=== PATIENT | female | born 1985 | race Caucasian/White ===

== ENCOUNTER 2018-09-28 09:33 | Emergency (ER) | payer BC, SELFPAY ==
[2018-09-28 10:17] LABS: Absolute Lymphocytes (CBC) 2.2 K/uL (0.7-4.9); Absolute Monocytes 0.4 K/uL (0.1-1.3); Basophils % 0.9 % (0-1.3); Eosinophils % 3.2 % (0-4.4); Hematocrit 39.6 % (36.0-45.0); MCH 29.4 pg (27.0-35.0); MCV 87.6 fL (80-100); MPV 8.3 fL (7.6-11.3); Monocytes % 6.4 % (3.3-12.3); RBC Red Blood Cell Count 4.51 M/uL (3.86-4.86)
[2018-09-28 10:35] LABS: Potassium 3.8 mmol/L (3.5-5.1)
[2018-09-28 10:49] LABS: Urine Blood TRACE (NEG); Urine Glucose NEGATIVE (NEG); Urine Protein NEGATIVE (NEG); Urine Specific Gravity 1.015 (1.005-1.030)
--- NOTE | 2018-09-28 11:10 | RAD REPORT ---
EXAM DESCRIPTION: US - Transvaginal Study Probe - 09/28/2018 10:51 am CLINICAL HISTORY: VAGINAL BLEEDING Pelvic pain. COMPARISON: No comparisons FINDINGS: The uterus is normal in size, shape and echotexture. Small 5 x 4 mm submucosal fibroid jennifer pected anterior wall. The uterus measures 7.8 x 5.2 x 4.1 cm. The endometrial stripe measures 12 mm, normal. Both ovaries are normal in size, shape and echotexture. The right ovary measures 3.3 x 1.8 x 1.6 cm. The left ovary measures 2.0 x 1.6 x 1.0 cm. No ovarian or parovarian lesions. No adnexal masses. Normal Doppler blood flow was demonstrated to both ovaries. No significant pelvic ascites. IMPRESSION: 5 x 4 mm submucosal fibroid anterior myometrium.
--- NOTE | 2018-09-28 11:45 | ER ---
Nurse's Notes [facility] Name: Jeana Rashid Age: 33 yrs Sex: Female : 1985 Arrival Date: 09/28/2018 Time: 09:37 Bed 7 Private MD: None, None Diagnosis: Abnormal uterine and vaginal bleeding, unspecified Presentation: 09/28 09:48 Presenting complaint: Patient states: vaginal bleeding that began as spotting on aa5 September 20 and has gotten heavier with small clots. Pt also reports intermittent lower abd cramping. Pt states "I didn't take a test but I haven't been able to get ". 09:48 Transition of care: patient was not received from another setting of care. Onset of aa5 symptoms was September 20, 2018. Risk Assessment: Do you want to hurt yourself or someone else? Patient reports no desire to harm self or others. Initial Sepsis Screen: Does the patient meet any 2 criteria? No. Patient's initial sepsis screen is negative. Does the patient have a suspected source of infection? No. Patient's initial sepsis screen is negative. Care prior to arrival: None. 09:48 Method Of Arrival: Ambulatory aa5 09:48 Acuity: JANINE 3 aa5 OPTICAL ADVISOR: 09:50 LMP 09/09/2018, (September 09-September 16) aa5 11:34 0, 0, Living 0, LMP 09/09/2018 kb Historical: - Allergies: 09:48 No Known Allergies; aa5 - PMHx: 09:48 None; aa5 - PSHx: 09:48 L foot; aa5 - Immunization history:: Adult Immunizations up to date. - Ebola Screening: : No symptoms or risks identified at this time. - Social history:: Smoking status: Patient/guardian denies using tobacco. Screenin:15 Abuse screen: Denies threats or abuse. Denies injuries from another. Nutritional hb screening: No deficits noted. Tuberculosis screening: No symptoms or risk factors identified. Fall Risk None identified. Assessment: 10:00 General: Appears in no apparent distress. Behavior is calm, cooperative. Pain: Denies hb pain. Neuro: Level of Consciousness is awake, alert, obeys commands, Oriented to person, place, time, situation. Cardiovascular: Capillary refill < 3 seconds Patient's skin is warm and dry. Respiratory: Airway is patent Trachea midline Respiratory effort is even, unlabored, Respiratory pattern is regular, symmetrical. GI: No signs and/or symptoms were reported involving the gastrointestinal system. : Reports vaginal bleeding that is bright red, with clots, moderate flow. EENT: No signs and/or symptoms were reported regarding the EENT system. Derm: Skin is intact, is healthy with good turgor, Skin is pink, warm \\T\\ dry. Musculoskeletal: No signs and/or symptoms reported regarding the musculoskeletal system. 11:00 Reassessment: Patient appears in no apparent distress at this time. Patient and/or hb family updated on plan of care and expected duration. Pain level reassessed. Patient is alert, oriented x 3, equal unlabored respirations, skin warm/dry/pink. 11:51 Reassessment: Patient appears in no apparent distress at this time. No changes from hb previously documented assessment. Patient and/or family updated on plan of care and expected duration. Pain level reassessed. Patient is alert, oriented x 3, equal unlabored respirations, skin warm/dry/pink. Vital Signs: 09:50 BP 155 / 92; Pulse 70; Resp 16 S; Temp 99.8(O); Pulse Ox 98% on R/A; Weight 97.07 kg aa5 (R); Height 5 ft. 9 in. (175.26 cm) (R); Pain 0/10; 11:30 BP 154 / 85; Pulse 60; Resp 15; Pulse Ox 100% on R/A; Pain 0/10; hb 09:50 Body Mass Index 31.60 (97.07 kg, 175.26 cm) aa5 ED Course: 09:37 Patient arrived in ED. mr 09:37 None, None is Private Physician. mr 09:38 Ramya Petty FNP-C is PHCP. kb 09:38 Samm Rivera MD is Attending Physician. kb 09:48 Arm band placed on Patient placed in an exam room, on a stretcher. aa5 09:54 Triage completed. aa5 09:57 Radha Mathew, SCOTT is Primary Nurse. hb 10:09 Initial lab(s) drawn, by mi, sent to lab. Inserted saline lock: 20 gauge in right dh3 antecubital area, using aseptic technique. Blood collected. 10:15 Patient has correct armband on for positive identification. Placed in gown. Bed in low hb position. Call light in reach. Side rails up X 1. 10:28 Urine collected: clean catch specimen, clear. 3 10:53 Urine --Ancillary (enter results) Sent. hb 10:54 Urine Dipstick--Ancillary (enter results) Sent. hb 11:30 No provider procedures requiring assistance completed. IV discontinued, intact, hb bleeding controlled, No redness/swelling at site. Pressure dressing applied. Administered Medications: No medications were administered Outcome: 11:30 Discharged to home ambulatory. hb 11:30 Condition: stable 11:30 Discharge instructions given to patient, Instructed on discharge instructions, follow up and referral plans. medication usage, Demonstrated understanding of instructions, follow-up care, medications. 11:44 Discharge ordered by . 11:53 Patient left the ED. Signatures: Ramya Petty, INDUSTRIAL CUSTODIANHiramC INDUSTRIAL CUSTODIAN-Haleigh Morfin mr GeorgesChantal hua, RN RN 5 Radha Mathew, SCOTT RN Linda Bertrand 3
--- NOTE | 2018-09-28 11:45 | EDPHYS ---
Physician Documentation [facility] Name: Jeana Rashid Age: 33 yrs Sex: Female : 1985 Arrival Date: 09/28/2018 Time: 09:37 Bed 7 Private MD: None, None ED Physician Samm Rivera HPI: 09/28 11:34 This 33 yrs old Female presents to ER via Ambulatory with complaints of kb Vaginal Bleeding. 11:34 The patient presents with vaginal bleeding that is moderate, with clots. Onset: The kb symptoms/episode began/occurred 1 week(s) ago. Modifying factors: The symptoms are alleviated by nothing, the symptoms are aggravated by nothing. Associated signs and symptoms: Pertinent positives: vaginal bleeding, Pertinent negatives: constipation, cramping, diarrhea, dyspareunia, dysuria, fever, hematuria, nausea, urinary frequency, vaginal discharge, vomiting. Severity of symptoms: At their worst the symptoms were moderate, in the emergency department the symptoms are unchanged. The patient has not experienced similar symptoms in the past. The patient has not recently seen a physician. SUPERVISOR HEADING: 09:50 LMP 09/09/2018, (September 09-September 16) aa5 11:34 0, 0, Living 0, LMP 09/09/2018 kb Historical: - Allergies: 09:48 No Known Allergies; aa5 - PMHx: 09:48 None; aa5 - PSHx: 09:48 L foot; aa5 - Immunization history:: Adult Immunizations up to date. - Ebola Screening: : No symptoms or risks identified at this time. - Social history:: Smoking status: Patient/guardian denies using tobacco. ROS: 11:34 Positive for vaginal bleeding. kb 11:34 Constitutional: Negative for fever, chills, and weight loss, Neck: Negative for injury, pain, and swelling, Cardiovascular: Negative for chest pain, palpitations, and edema, Respiratory: Negative for shortness of breath, cough, wheezing, and pleuritic chest pain, Abdomen/GI: Negative for abdominal pain, nausea, vomiting, diarrhea, and constipation, Back: Negative for injury and pain, MS/Extremity: Negative for injury and deformity, Skin: Negative for injury, rash, and discoloration, Neuro: Negative for headache, weakness, numbness, tingling, and seizure. Exam: 11:34 Constitutional: This is a well developed, well nourished patient who is awake, alert, kb and in no acute distress. Head/Face: Normocephalic, atraumatic. Chest/axilla: Normal chest wall appearance and motion. Nontender with no deformity. No lesions are appreciated. Cardiovascular: Regular rate and rhythm with a normal S1 and S2. No gallops, murmurs, or rubs. Normal PMI, no JVD. No pulse deficits. Respiratory: Lungs have equal breath sounds bilaterally, clear to auscultation and percussion. No rales, rhonchi or wheezes noted. No increased work of breathing, no retractions or nasal flaring. Abdomen/GI: Soft, non-tender, with normal bowel sounds. No distension or tympany. No guarding or rebound. No evidence of tenderness throughout. Skin: Warm, dry with normal turgor. Normal color with no rashes, no lesions, and no evidence of cellulitis. MS/ Extremity: Pulses equal, no cyanosis. Neurovascular intact. Full, normal range of motion. Neuro: Awake and alert, GCS 15, oriented to person, place, time, and situation. Cranial nerves II-XII grossly intact. Motor strength 5/5 in all extremities. Sensory grossly intact. Cerebellar exam normal. Normal gait. Vital Signs: 09:50 BP 155 / 92; Pulse 70; Resp 16 S; Temp 99.8(O); Pulse Ox 98% on R/A; Weight 97.07 kg aa5 (R); Height 5 ft. 9 in. (175.26 cm) (R); Pain 0/10; 11:30 BP 154 / 85; Pulse 60; Resp 15; Pulse Ox 100% on R/A; Pain 0/10; hb 09:50 Body Mass Index 31.60 (97.07 kg, 175.26 cm) aa5 MDM: 09:50 Patient medically screened. kb 11:34 Data reviewed: vital signs, nurses notes. Data interpreted: Pulse oximetry: on room air kb is 98 %. Interpretation: normal. Counseling: I had a detailed discussion with the patient and/or guardian regarding: the historical points, exam findings, and any diagnostic results supporting the discharge/admit diagnosis, lab results, radiology results, the need for outpatient follow up, an OB/Gyne specialist, to return to the emergency department if symptoms worsen or persist or if there are any questions or concerns that arise at home. 09/28 10:35 Order name: Urine Dipstick--Ancillary (enter results) 09/28 10:35 Order name: Urine --Ancillary (enter results) bd 09/28 10:39 Order name: Basic Metabolic Panel; Complete Time: 10:39 EDNJ 09/28 10:49 Order name: Urine --Ancillary; Complete Time: 10:49 EDNJ 09/28 09:56 Order name: Urine Test (obtain specimen); Complete Time: 10:28 kb 09/28 09:56 Order name: IV Saline Lock; Complete Time: 10:12 kb 09/28 09:56 Order name: Labs collected and sent; Complete Time: 10:12 kb 09/28 09:56 Order name: NPO; Complete Time: 10:12 kb 09/28 10:28 Order name: US Transvaginal Study (Probe) 09/28 10:49 Order name: Urine Dipstick-Ancillary; Complete Time: 10:49 EDNJ 09/28 11:12 Order name: US; Complete Time: 11:31 EDNJ 09/28 11:16 Order name: CBC with Automated Diff EDNJ 09/28 09:56 Order name: Urine Dipstick-Ancillary (obtain specimen); Complete Time: 10:28 kb Administered Medications: No medications were administered Disposition: 15:34 Co-signature as Attending Physician, Samm Rivera MD. rn Disposition: 09/28/18 11:44 Discharged to Home. Impression: Abnormal uterine and vaginal bleeding, unspecified. - Condition is Stable. - Discharge Instructions: Uterine Fibroids, [id number], Abnormal Uterine Bleeding, [id number]. - Medication Reconciliation Form, Thank You Letter, Antibiotic Education, Prescription Opioid Use form. - Follow up: Emergency Department; When: As needed; Reason: Worsening of condition. Follow up: Private Physician; When: 2 - 3 days; Reason: Recheck today's complaints, Continuance of care, Re-evaluation by your physician. Signatures: Dispatcher [employer] [facility] Ramya Petty, LAUNDRY PRICING CLERK-C LAUNDRY PRICING CLERK-CkSamm Morris MD MD rn Calderon, Audri RN RN aa5 Radha Mathew RN RN hb Corrections: (The following items were deleted from the chart) 11:53 11:44 09/28/2018 11:44 Discharged to Home. Impression: Abnormal uterine and vaginal hb bleeding, unspecified. Condition is Stable. Discharge Instructions: Uterine Fibroids, [id number], Abnormal Uterine Bleeding, [id number]. Forms are Medication Reconciliation Form, Thank You Letter, Antibiotic Education, Prescription Opioid Use. Follow up: Emergency Department; When: As needed; Reason: Worsening of condition. Follow up: Private Physician; When: 2 - 3 days; Reason: Recheck today's complaints, Continuance of care, Re-evaluation by your physician. kb
== END 2018-09-28 11:53 | disposition home or self-care (01) ==
LOC: ER 09:33
DX: N93.9 Abnormal uterine and vaginal bleeding, unspecified (principal); D26.1 Other benign neoplasm of corpus uteri
CPT/HCPCS: 36415; 76830; 80048; 81003; 81025; 85025; 99283